=== PATIENT | male | born 1995 | race African-American/Black ===

== ENCOUNTER 2016-10-23 21:56 | Emergency (ER) | payer OTHER ==
[~2016-10-23] VITALS: Ht 193 cm; Wt 78.0 kg
--- OUTSIDE RECORDS SUMMARY | 2016-10-23 22:04 | XMS REPORT | Continuity of Care Document ---
Author Author Interface Organization Interface Address Unknown Phone Unavailable Problems Problem Status Onset Date Classification Date Reported Comments Source Final: Noninfective gastroenteritis and colitis, unspecified 10/28/2015 [facility] Final: Elevated white blood cell count, unspecified 07/2016 [facility] Problem 06/08/2016 [facility] Final: Diarrhea, unspecified 06/08/2016 [facility] Final: Epigastric pain 06/08/2016 [facility] Final: Personal history of other specified conditions 06/08/2016 [facility] Medications Medication Details Route Status Patient Instructions Ordering Provider Order Date Source Motrin 600 mg, PO, PRN Pain, Moderate, takes 800 mg when pain is really bad </br>takes 800 mg when pain is really bad Active [facility] Cephalexin 500 MG Oral Capsule [Keflex] </br>=500 mg, 1 cap, PO, Q12H, # 20 cap, 0 Refill(s) Active [facility] Allergies, Adverse Reactions, Alerts Substance Category Reaction Severity Reaction type Status Date Reported Comments Source Immunizations Immunization Date Given Site Status Last Updated Comments Source No data available for this section No data available for this section [facility] Results Order Name Results Value Reference Range Date Interpretation Comments Source Chemistry LIPASE 20 units/L 13 - 60 10/23/2015 [facility] Hematology MCHC 34.4 g/dL 32.0 - 36.0 10/23/2015 [facility] Hematology Plt 248 10^3/cmm 150 - [id number] 10/23/2015 [facility] Hematology MPV 7.1 FL 7.4 - 10.4 10/23/2015 [facility] Hematology RDW 13.6 % 11.5 - 14.5 10/23/2015 [facility] Hematology Gran % 83.0 % 45.0 - 74.0 10/23/2015 [facility] Hematology Baso % 0.2 % 0.0 - 2.0 10/23/2015 [facility] Hematology Gran 9.9 10^3/cmm 1.4 - 7.0103 10/23/2015 [facility] Hematology Ware % 6.6 % 1.0 - 9.0 10/23/2015 [facility] Hematology Eos % 0.2 % 1.0 - 8.0 10/23/2015 [facility] Hematology Lymph % 10.0 % 22.0 - 50.0 10/23/2015 [facility] Hematology NRBC Auto 0.0 / 100WBC 10/23/2015 [facility] Hematology Eos 0.00 10^3/cmm 0.00 - 0.66088 10/23/2015 [facility] Hematology Baso 0.00 10^3/ cmm 0.00 - 0.06155 2015 [facility] Hematology Ware 0.8 10^3/cmm 0.0 - 0.6103 10/23/2015 [facility] Hematology Lymph 1.2 10^3/ cmm 1.2 - 3.5103 10/23/2015 [facility] Hematology WBC 11.90 10^3/ cmm 4.30 - 10.89471 2015 [facility] Hematology RBC 5.29 10^6/cmm 4.40 - 6.75507 10/23/2015 [facility] Hematology Hemoglobin 15.3 g/ dL 14.0 - 18.0 10/23/2015 [facility] Hematology Hematocrit 44.3 % 40.0 - 52.0 10/23/2015 [facility] Hematology MCV 83.8 FL 80.0 - 100.0 10/23/2015 [facility] Hematology MCH 28.9 PG 27.0 - 34.0 10/23/2015 [facility] Chemistry GFR -Anguillan null >=60 mL/min/1.73m2 02/2016 [facility] Chemistry GFR Non -Anguillan null >=60 mL/min/1.73m2 10/23/2015 [facility] Chemistry Sodium 138 mmol/L 136 - 144 10/23/2015 [facility] Chemistry Chloride 99 mmol/L 95 - 105 10/23/2015 [facility] Chemistry Potassium 3.7 mmol/ L 3.6 - 5.1 10/23/2015 [facility] Chemistry GLUCOSE 99 mg/dL 70 - 99 10/23/2015 [facility] Chemistry Anion Gap 14 mmol/ L 10 - 20 10/23/2015 [facility] Chemistry BUN 15 mg/dL 8 - 20 10/23/2015 [facility] Chemistry CALCIUM 9.7 mg/dL 8.6 - 10.3 10/23/2015 [facility] Chemistry CO2 25 mmol/L 22 - 32 10/23/2015 [facility] Chemistry BUN/CREA RATIO 14.15 12.10 - 20.10 2015 [facility] Chemistry CALC. OSMO 287 mOsm /kg 275 - 300 10/23/2015 [facility] Chemistry Creatinine 1.06 mg/ dL 0.90 - 1.30 10/23/2015 Result Comment: This result should be interpreted with caution due to the Icteric nature of the submitted </br>sample. Result may deviate up to +/-10% or more, from reported result. [facility] Chemistry ALT [GPT] 15 U/L 7 - 35 10/23/2015 [facility] Chemistry TOTAL PROTEIN 7.8 g /dL 6.1 - 7.9 10/23/2015 [facility] Chemistry Bilirubin Total 2.2 mg/dL 0.3 - 1.2 2015 [facility] Chemistry Bilirubin Direct 0.3 mg/dL 0.1 - 0.5 2015 [facility] Chemistry GLOBULIN 2.8 g/dL 2.6 - 3.2 10/23/2015 [facility] Chemistry A/G RATIO 1.79 1.30 - 1.50 10/23/2015 [facility] Chemistry Bilirubin Indirect 1.9 mg/dL 0.3 - 0.7 2015 [facility] Chemistry ALK PHOS 105 U/L 32 - 91 10/23/2015 [facility] Chemistry AST [GOT] 26 U/L 15 - 41 10/23/2015 [facility] Chemistry ALBUMIN 5.0 g/dL 3.5 - 4.8 10/23/2015 [facility] Point Of Care Rapid HIV POC (Normal:Negative) Negative </br>(06/03/16 10:06 PM) [facility] Serology Ware Spot Negative </br>(06/03/16 9:59 PM) Negative 06/04/2016 [facility] Infectious Serology / Molecular Testing ASO Titer 65 IU/mL < QC=936 IU/mL 06/04/2016 Result Comment: Test Performed at: </br>[employer] [facility] </br>[address] </br>[place] [id number] MARIYA ENGLISH DO,MPH [facility] Chemistry CK TOTAL 141 U/L 38 - 234 06/04/2016 [facility] Chemistry LIPASE 18 units/L 13 - 60 06/04/2016 [facility] Chemistry ALT [GPT] 9 U/L 7 - 35 06/04/2016 [facility] Chemistry Bilirubin Direct 0.3 mg/dL 0.1 - 0.5 2015 [facility] Chemistry Bilirubin Total 1.6 mg/dL 0.3 - 1.2 2015 [facility] Chemistry TOTAL PROTEIN 7.5 g /dL 6.1 - 7.9 06/04/2016 [facility] Chemistry AST [GOT] 20 U/L 15 - 41 06/04/2016 [facility] Chemistry A/G RATIO 1.68 1.30 - 1.50 06/04/2016 [facility] Chemistry GLOBULIN 2.8 g/dL 2.6 - 3.2 06/04/2016 [facility] Chemistry Bilirubin Indirect 1.3 mg/dL 0.3 - 0.7 2015 [facility] Chemistry ALBUMIN 4.7 g/dL 3.5 - 4.8 06/04/2016 [facility] Chemistry ALK PHOS 98 U/L 32 - 91 06/04/2016 [facility] Chemistry Creatinine 1.09 mg/ dL 0.90 - 1.30 06/04/2016 [facility] Chemistry BUN/CREA RATIO 11.01 12.10 - 20.10 2015 [facility] Chemistry Anion Gap 12 mmol/ L 10 - 20 06/04/2016 [facility] Chemistry GFR -Anguillan null >=60 mL/min/1.73m2 [facility] Chemistry CALC. OSMO 286 mOsm /kg 275 - 300 06/04/2016 [facility] Chemistry GFR Non -Anguillan null >=60 mL/min/1.73m2 06/04/2016 [facility] Chemistry Sodium 138 mmol/L 136 - 144 06/04/2016 [facility] Chemistry Potassium 4.2 mmol/ L 3.6 - 5.1 06/04/2016 [facility] Chemistry BUN 12 mg/dL 8 - 20 06/04/2016 [facility] Chemistry CO2 26 mmol/L 22 - 32 06/04/2016 [facility] Chemistry CALCIUM 9.0 mg/dL 8.6 - 10.3 06/04/2016 [facility] Chemistry GLUCOSE 106 mg/dL 70 - 99 06/04/2016 [facility] Chemistry Chloride 100 mmol/ L 95 - 105 06/04/2016 [facility] Hematology Eos 0.10 10^3/cmm 0.00 - 0.89299 06/04/2016 [facility] Hematology NRBC Auto 0.1 / 100WBC 06/04/2016 [facility] Hematology Baso 0.10 10^3/ cmm 0.00 - 0.62455 2015 [facility] Hematology Ware 0.6 10^3/cmm 0.0 - 0.6103 06/04/2016 [facility] Hematology Baso % 1.1 % 0.0 - 2.0 06/04/2016 [facility] Hematology Eos % 1.7 % 1.0 - 8.0 06/04/2016 [facility] Hematology Lymph 1.3 10^3/ cmm 1.2 - 3.5103 06/04/2016 [facility] Hematology Gran 3.0 10^3/cmm 1.4 - 7.0103 06/04/2016 [facility] Hematology Ware % 12.8 % 1.0 - 9.0 06/04/2016 [facility] Hematology MPV 6.8 FL 7.4 - 10.4 06/04/2016 [facility] Hematology RDW 13.6 % 11.5 - 14.5 06/04/2016 [facility] Hematology Lymph % 25.2 % 22.0 - 50.0 06/04/2016 [facility] Hematology Gran % 59.2 % 45.0 - 74.0 06/04/2016 [facility] Hematology Hematocrit 41.6 % 40.0 - 52.0 06/04/2016 [facility] Hematology MCH 28.7 PG 27.0 - 34.0 06/04/2016 [facility] Hematology MCV 82.9 FL 80.0 - 100.0 06/04/2016 [facility] Hematology Plt 290 10^3/cmm 150 - [id number] 06/04/2016 [facility] Hematology MCHC 34.6 g/dL 32.0 - 36.0 06/04/2016 [facility] Hematology Hemoglobin 14.4 g/ dL 14.0 - 18.0 06/04/2016 [facility] Hematology RBC 5.02 10^6/cmm 4.40 - 6.15711 06/04/2016 [facility] Hematology WBC 5.00 10^3/cmm 4.30 - 10.32895 06/04/2016 [facility] Fecal / Stool Testing 027 Strain Presumptive Negative </br>(06/03/16 9:56 PM) Presumptive Negative 06/04/2016 [facility] Fecal / Stool Testing Toxigenic C. difficile Negative </br>(06/03/16 9:56 PM) Negative 06/04/2016 [facility] Infectious Serology / Molecular Testing Rapid Rotavirus Negative </br>(06/03/16 9:56 PM) Negative 06/04/2016 [facility] Point Of Care Urine Protein POC Negative mg/dL Negative mg/dL 06/04/2016 [facility] Point Of Care Urine Glucose POC Negative mg/dL Negative mg/dL 06/04/2016 [facility] Point Of Care Urine Ketones POC Trace mg/dL Negative mg/dL 06/04/2016 [facility] Point Of Care Urine Bilirubin POC Negative </br>(06/03/16 9:53 PM) Negative 06/04/2016 [facility] Point Of Care Urine pH POC 6.0 4.5 - 8.0 06/04/2016 [facility] Point Of Care Oper ID [id number] 06/04/2016 [facility] Point Of Care Urine Color POC Yellow </br>(06/03/16 9:53 PM) Yellow 06/04/2016 [facility] Point Of Care Urine Specific [place] POC 1.020 1.003 - 1.030 06/04/2016 [facility] Point Of Care Urine Clarity POC Clear </br>(06/03/16 9:53 PM) Clear 06/04/2016 [facility] Point Of Care Urine Nitrite POC Negative </br>(06/03/16 9:53 PM) Negative 06/04/2016 [facility] Point Of Care Urine Leukocyte Esterase POC Negative </br>(06/03/16 9:53 PM) Negative 06/04/2016 [facility] Point Of Care Urine Blood POC Negative </br>(06/03/16 9:53 PM) Negative 06/04/2016 [facility] Point Of Care Urine Urobilinogen POC 1.0 EU/dL 0.2 EU/dL 06/04/2016 [facility] Stool culture bacterial No Salmonella or Shigella isolated. No Campylobacter isolated. 06/04/2016 [facility] Shiga Toxin E. coli Shiga toxins 1 and 2 not detected. 06/04/2016 [facility] ED Discharge Instructions < table cellspacing="1" cellpadding="0" width="95%"><colgroup><col width="35%"></ col><col width="35%"></col><col width="30%"></col></colgroup><tbody><tr><td align="left"><content styleCode="Bold">Title:</content>ED Discharge Instructions </td><td align="left"><content styleCode="Bold">Author:</content> Martina Pierre RN</td><td align="left"><content styleCode="Bold">Date:</ content>06/04/16</td></tr></tbody></table><table cellspacing="1" cellpadding ="0" width="95%"><tbody><tr><td>[facility] [address] [place] [address] Emergency Department [phone] Emergency Department Discharge Instructions Name : JORDON CHARRAKAN DELACRUZ Visit Date: 06/03/2016 9:23 PM Reason For Visit: Diarrhea; Abdominal pain; FEVER, ABD PAIN Comment: Emergency Department Care Providers: Thank you for the opportunity to provide your emergency medical care. It is important that you understand that emergency medical services are not a substitute for complete medical care. For your protection, make arrangements to see the doctor indicated below. All smokers are encouraged to stop smoking. If you would like help, talk to your doctor or call The [place] Tobacco Quitline at 8-625-OUQB-NOW (8-094-314- 3904). If you have thoughts about committing suicide or otherwise hurting yourself, please call 911 or call Crisis Line at . If your primary care provider is a [facility] physician or you would like to establish care at [facility] please call [phone] to schedule an appointment. If you are a new patient you may have to wait up to 60 days for a scheduled appointment. If you need to establish care sooner, you may want to look for other options. PAYMENT GUIDELINES FOR [facility] PATIENTS: [facility] now requires all self-pay and partial [facility] discount patients to make a down payment before receiving non-emergency care. In most cases, your down payment will be 25 percent of your charges. If you currently receive a 100% [facility] discount , these new guidelines do not apply to you. We accept milligan, check, Visa and MasterCard. If you are a self-pay patient and would like to discuss discounted services or Medicaid, please contact [facility] at [phone]. Remember: at the time of your appointment, you must present a photo ID as well as your insurance card or the required down payment, or your appointment will be rescheduled for another day. If you have commercial insurance and [facility] is not on your list of providers, please call your insurance company and make your follow-up appointment with your PCP or a provider who takes your insurance. CHAR RUVALCABA has been given the following list of patient education materials, prescriptions and follow-up instructions: Follow-up Instructions: With: Address: When: Return to Emergency Department Within As needed Comments: Please be advised that in the emergency department primary complaints are addressed and only in light of known signs and symptoms. You should return immediately to the emergency department if new signs and symptoms develop or your condition worsens in any way. With: Address: When: Refer to Clinic Resource Sheet Comments: Use the clinic resource list to establish care with a primary care physician. You will need a follow-up examination from your emergency department visit within 7 days and you will need a regular physician for help in managing your ongoing medical problems. Patient Education Materials : Health Clinics in the [facility] Website: http://www.healthy[place].org/rx_resource_center_resources.html#ne [facility] Health Care Access in [place]: http://www.healthcareaccess.org [address] [place] [address] Provides comprehensive health care services and medication assistance to [facility] residents who have a limited income and no health insurance. [facility]: http://www.[facility] hospitalSuzhou [employer]/medministryphp [address], [address] [place] [address] Provides medical care for children and adults including preventive, chronic and acute health care. [facility]: http://www.[place].[facility]/ healthpa.htm [address] [address] Provides medication assistance for [facility]placed [facility] patients who are [facility] residents, have incomes of 200 percent of the poverty level and below and have no insurance. [facility] [address] [place] [address] . Provides primary health care services to the uninsured, registered patients of [facility] with incomes of 150 percent of the poverty level and below. Prescription drug assistance is available to clinic patients. [facility]: http://www.[facility] sanitariumu/berger.htm [address] [place] [address] Proof of income & meet Federal poverty level; only uninsured individuals. No walk-ins unless homeless. [address] [id number] Provides primary health care. Individuals and families with incomes below 200 percent of the poverty level are eligible for the sliding fee scale. [facility] ([place] and [place] locations): http://www.IActionable.org/ [place] locations: [facility] [address] [place] [id number] [facility] [address], [address] [place] [address] [facility] [address], [address] [place] [address] Charge based on income and family size. Provides: adult medicine, pediatrics, obstetrics/gynecology, mental health, healthcare for homeless, laboratory, x-ray , dental services. [facility] [address], [address] [place] [address] Provides primary healthcare and health counseling services to children under age 20. [facility] [address] [place] [address] Provides immunizations, blood pressure, and examinations for sexually transmitted diseases. [place] Website: http://www.[facility].nv.gov/LPHA/LPHAs.html [facility] [address] [place] [address] Provides primary health care to [facility]'s community. Administers well-baby services, AIDS / HIV testing, family planning counseling, diabetes screening/education / treatment, WIC program, immunizations , nutrition education, migrant health services, medical clinic, dental clinic. [address] [phone] [facility]: http://www.[facility].org/ [address] [id number] Must be [facility] resident with no health insurance. Provides immunizations , well-baby clinics, and sexually transmitted disease clinic. Adults with chronic diseases are seen on Tuesdays from 6-9pm by appointment only. [facility]: http://www.kcfree.org/ [place]: [phone] [address] [place] [address] [place]: [phone] [address] Appointments scheduled on a next-day scheduling basis. Bring proof of income and current residency information. Provides general medicine, testing/screening , community health, mental health services, HIV primary care and support, dental services. [facility] [place]: http://www.[facility].org/ [address] [place] [address] Interpreters: Kiswahili, [place] Ca[place] Islander, Bosnian, Portuguese, Mongolian, Kurdish, Congolese, Burmese, and Moroccan Provides the following services based on income and family size: pediatric, womens health/obstetrics, adult/geriatric medicine, dentistry, behavioral health/psychiatric services, gambling addiction counseling , substance abuse treatment and counseling. [facility]: http://www.[facility].org/ [place] locations: [facility] [address] [place] [address] [facility] [address] [place] [address] [facility] [address] [address] Charge based on income and family size. Provides: adult medicine, pediatrics, obstetrics/gynecology, mental health, healthcare for homeless, laboratory, x-ray , dental services. [facility]: [facility] Department: http://www.[facility].nv.gov/profiles/CountyInfo/ CpiClay[place] [address] Provides primary, preventative, and womens health care services. [facility]: http://www.[facility].com [facility] [address] [place] [address] Primary care, funded by [facility] and the [facility] care tax bob. Provides primary health care to citizens who are on Medicaid or MC+ or have no health insurance. [facility]: [facility] [address], [place] [phone] Provides health education and health screenings. Diarrhea Diarrhea is frequent loose and watery bowel movements. It can cause you to feel weak and dehydrated. Dehydration can cause you to become tired and thirsty, have a dry mouth, and have decreased urination that often is dark yellow. Diarrhea is a sign of another problem, most often an infection that will not last long. In most cases, diarrhea typically lasts 23 days. However, it can last longer if it is a sign of something more serious. It is important to treat your diarrhea as directed by your caregiver to lessen or prevent future episodes of diarrhea. CAUSES Some common causes include: Gastrointestinal infections caused by viruses, bacteria, or parasites. Food poisoning or food allergies. Certain medicines, such as antibiotics, chemotherapy, and laxatives. Artificial sweeteners and fructose. Digestive disorders. HOME CARE INSTRUCTIONS Ensure adequate fluid intake (hydration): Have 1 cup (8 oz) of fluid for each diarrhea episode. Avoid fluids that contain simple sugars or sports drinks , fruit juices, whole milk products, and sodas. Your urine should be clear or pale yellow if you are drinking enough fluids. Hydrate with an oral rehydration solution that you can purchase at pharmacies, retail stores, and online. You can prepare an oral rehydration solution at home by mixing the following ingredients together: tsp table salt. tsp baking soda. tsp salt substitute containing potassium chloride. 1 tablespoons sugar. 1 L (34 oz) of water. Certain foods and beverages may increase the speed at which food moves through the gastrointestinal (GI) tract. These foods and beverages should be avoided and include: Caffeinated and alcoholic beverages. High-fiber foods, such as raw fruits and vegetables, nuts, seeds, and whole grain breads and cereals. Foods and beverages sweetened with sugar alcohols, such as xylitol, sorbitol, and mannitol. Some foods may be well tolerated and may help thicken stool including: Starchy foods, such as rice, toast, pasta, low-sugar cereal, oatmeal, grits, baked potatoes, crackers, and bagels. Bananas. Applesauce. Add probiotic-rich foods to help increase healthy bacteria in the GI tract, such as yogurt and fermented milk products. Wash your hands well after each diarrhea episode. Only take yfet-gha-udvxuys or prescription medicines as directed by your caregiver. Take a warm bath to relieve any burning or pain from frequent diarrhea episodes. SEEK IMMEDIATE MEDICAL CARE IF: You are unable to keep fluids down. You have persistent vomiting. You have blood in your stool, or your stools are black and tarry. You do not urinate in 68 hours, or there is only a small amount of very dark urine. You have abdominal pain that increases or localizes. You have weakness, dizziness, confusion, or light-headedness. You have a severe headache. Your diarrhea gets worse or does not get better. You have a fever or persistent symptoms for more than 23 days. You have a fever and your symptoms suddenly get worse. MAKE SURE YOU: Understand these instructions. Will watch your condition. Will get help right away if you are not doing well or get worse. This information is not intended to replace advice given to you by your health care provider. Make sure you discuss any questions you have with your health care provider. Document Released: 09/25/2003 Document Revised: 10/26/2015 Document Reviewed: [employer] Patient Information 2016 [employer]. Prescription leaflets: Prescriptions : Prescriptions: loperamide (loperamide 2 mg oral capsule) 2 mg (1 cap) By Mouth Every 4 Hours, 10 cap, 0 Refills, printed prescription Comment: Your Upcoming Appointments/Genesis proxim[place] citas Please bring all home medications to every visit with us at [facility]. Your safety and education around medications is our goal. (Prescription , non prescription and herbal supplements) Date Time Location Appointment Type Provider No Appointments found Future Orders Placed Today/Ordenes de Doctor Major procedures/tests performed during your ED visit: Laboratory Orders Name Status Details ASO Ordered Stat, ST, 06/03/16 21:54:00, Blood, Print Label BMP Completed Stat, 06/03/16 21:54:00, Blood, 74.2 kg C Stool Ordered Routine, 06/03/16 21:54:00, Stool, Nurse Collect, 06/03/16 21:56:00, 06/03/16 21 :54:00 C diff toxin InProcess STAT, 06/03/16 21:54:00, Stool, Print Label, Stool CBC Completed Stat, 06/03/16 21:54:00, Blood, 74.2 kg CK Completed Stat, ST, 06/03/16 21:54:00, Blood, Print Label Giar Cryp Ordered STAT, 06/03/16 21:54:00, Stool, Nurse Collect, 06/03/16 21:56:00, 06/03/16 21:54 :00 Lipase Completed Stat, 06/03/16 21:54:00, Blood, 74.2 kg Liver Completed Stat, 06/03/16 21:54:00, Blood, 74.2 kg Ware Completed Stat, ST, 06/03/16 21:54:00, Blood, Print Label POC UA Completed Urine, Collected Y/N, 06/03/16 21:53:00, Routine, RT, 06/03/16 21:53:00 Rapid Rotavirus Completed STAT, 06/03/16 21:54:00, Feces, Print Label Shiga Toxin Ordered Stat, 06/03/16 21:54:00, Stool, Nurse Collect, 06/03/16 21:56:00, 06/03/16 21:54 :00 CAR FRAMER Completed 06/03/16 21:59:00, Stat, ST, Other, 1 mL No Draw/*[id number]*/, Collected Y/N, Done, 06/03/16 22:30:00, [facility] Log-in, [place] Radiology Orders No radiology orders were placed. [ ] (If checked) Do not drive or operate heavy machinery for 12 hours. The exam and treatment that you received today has been provided on an emergency basis only. If your problem worsens or new symptoms appear, contact your doctor or return to this facility for further care. YOU MUST MAKE A FOLLOW-UP APPOINTMENT IN THE CLINIC LISTED ABOVE TO RECEIVE YOUR TEST RESULTS! Take Charge of Your Health with [facility] Sign up today for [facility] for access to your health records 11/05. [facility] allows you to: Request an appointment Check your lab results Communicate with your providers and care team See provider notes from your visit View immunization records View current medication Sign up Today! Ask your healthcare provider or a [facility] associate for help, or email [email or web address] JORDON Saldaña JAMARI RAYNEAL, have received the attached patient education materials/instructions and have verbalized understanding/Yo recibi educacion, materiales instrucciones de paciente y se me a explicado verbalmente para mi propia comprension: Patient/Guardian Signature Date Firma de paciente/guardian Feclavern Witness Signature Date Firma de Testkody Quigley </td></tr></tbody></table> [facility] Clinical Document <table cellspacing="1" cellpadding="0" width="95%"><colgroup><col width="35%"></col>< col width="35%"></col><col width="30%"></col></colgroup><tbody><tr><td align= "left"><content styleCode="Bold">Title:</content>Clinical Document</td><td align ="left"><content styleCode="Bold">Author:</content>Tian Galvan</td><td align="left"><content styleCode="Bold">Date:</content>06/03/16</td></tr></tbody>< /table><table cellspacing="1" cellpadding="0" width="95%"><tbody><tr><td>Chief Complaint: Diarrhea History of Present Illness: Patient is a 21-year-old male who states that over the last 4 days he has had discomfort in his abdomen near his umbilicus and has been having diarrhea. Patient describes at least 10 episodes of watery, brown, nonbloody diarrhea per day since the illness started. He notes that he has been able to drink and is not having any nausea or vomiting. However when he does eat , it seems to "go right through me". Patient notes that about 2 weeks ago he had a severe sore throat and a fever. He was seen by his primary doctor and was treated symptomatically without diagnostic testing. Patient states that his sore throat stopped approximately one week ago and is gone now. He notes that since he's had the diarrhea he feels that he had a recurrent fever again. He notes that he is having sweats at night and feeling hot, but he has not measured his temperature. He believes that his MAXIMUM TEMPERATURE was 102 with the pharyngitis a few weeks ago. Patient was seen in an urgent care yesterday and was told that he has protein in his urine. He had a rapid strep test that was negative, but the family does not know the results of the cultures. He also had a fingerstick monotest that was negative. He was started on Keflex yesterday also. Past Medical History: Patient denies ongoing medical illness except what is described above Primary Care Physician: Dr. Rollins. Patient saw the nurse practitioner in that office a week ago Medications: Keflex, no other medications Allergies: No known drug allergies Past Surgical History: Knee surgery Family History: Coronary artery disease, diabetes, asthma, hypertension Social History: Patient is a nonsmoker. He denies drug and alcohol abuse. Patient is a college student at [employer]. 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 He stopped working there about 2 weeks ago. He does not know of any specific sick contacts recently. He denies any unusual bites, stings, or rashes while working at [employer]. Review of Systems: All other systems reviewed and are negative Physical Exam: Vitals: Temperature 99.4 heart rate 78 respiratory rate 18 blood pressure 129/ 82 and oxygen saturation 100% on room air Gen.: This is a well-developed athletic appearing -[place]guill[place] male who is not in acute distress HEENT: Ears are clear bilaterally, conjunctiva pink, pupils are equal round and reactive to light, nares patent bilaterally, there is no sinus tenderness to percussion, lips and mucous membranes are moist, oropharynx is clear. Neck: Supple, patient has no anterior chain or posterior chain cervical lymphadenopathy Chest: Clear and equal bilaterally Heart: Regular Abdomen: Patient has mild epigastric pain without guarding or rebound. Bowel sounds are present. No hepatosplenomegaly is noted Skin: pink and well profused, no rashes or lesions Psych: Patient is alert and oriented Neuro: Grossly normal strength and sensation ED Course: 2121: Patient was triaged 2129: Patient was seen by this physician. 2144: Basic laboratory studies were ordered by this physician. Stool studies were ordered. Patient's urinalysis shows clear urine with a specific gravity of 1.020 and no abnormality. Patient's laboratory studies are essentially within normal limits. Stool studies have been collected and are pending. Assessment: Abdominal pain and diarrhea with history of recent pharyngitis Plan: Medications Prescribed: Loperamide Instructions: Plenty of fluids, patient will be contacted if any of his culture results are positive Consultations: None Follow up: In addition patient is asked to followup with their primary doctor, within a week for followup examination and to address patient's ongoing medical conditions. Because patient does not have a regular medical doctor, the [facility] Resource Sheet will be provided to establish care primary care. Patient is advised that in the Emergency Department primary complaints are addressed and only in light of known signs and symptoms. Patient should return immediately to the emergency department if new signs and symptoms develop or patient's condition worsens in any way. At time of discharge patient was in stable condition and had verbalized understanding of the discharge instructions. Signed: Tian Galvan M.D. * The above document was generated with a voice recognition dictation system.</ td></tr></tbody></table> [facility] Vital Signs Vital Sign Value Date Comments Source Total Pain Calculation 0 [facility] Heart Rate 72 bpm 12/07/2013 [facility] Respiratory Rate 16 BR/min [facility] Temperature Celsius 36.3 Rachel 12/07/2013 [facility] Systolic Blood Pressure Cuff Monitored 132 mm[Hg] 12/07/2013 [facility] Diastolic Blood Pressure Cuff Monitored 82 mm[Hg] 12/07/2013 [facility] Temperature Route Oral </br>(12/06/2013 20:32:00) <sup> </sup> 12/07/2013 [facility] NBP Activity Calm </br>(12/06/2013 20:32:00) <sup> </sup> 12/07/2013 [facility] NBP Cuff Sizes Adult </br>(12/06/2013 20:32:00) <sup> </sup> 12/07/2013 [facility] NBP Extremity Arm, left </br>(12/06/2013 20:32:00) <sup> </sup> 12/07/2013 [facility] NBP Position Sitting </br>(12/06/2013 20:32:00) <sup> </sup> 12/07/2013 [facility] Total Pain Calculation 2 [facility] SpO2 100 % 12/07/2013 [facility] Respiratory Rate 16 BR/min [facility] Heart Rate 60 bpm 12/07/2013 [facility] Respiratory Rate 16 BR/min [facility] Fraction of Inspired Oxygen 21 % 12/07/2013 [facility] SpO2 95 % 12/07/2013 [facility] Heart Rate 76 bpm 12/07/2013 [facility] Total Pain Calculation 10 [facility] Systolic BP 126 mmHg 2015 [facility] Diastolic BP 74 mmHg 2015 [facility] Oxygen Saturation 98 % 2015 [facility] Oxygen Therapy Room air </br>(10/23/15 3:17 AM) 10/23/2015 [facility] Resp. Rate 16 BRMIN 2015 [facility] Temperature Route Oral </br>(10/23/15 3:17 AM) 10/23/2015 [facility] Temperature Oral 97.7 [degF] 10/23/2015 [facility] Heart Rate 75 bpm 10/23/2015 [facility] Temperature Oral 99.2 [degF] 06/04/2016 [facility] Resp. Rate 19 BRMIN 2015 [facility] Heart Rate 71 bpm 06/04/2016 [facility] Heart Rate 78 bpm 06/04/2016 [facility] Systolic BP 129 mmHg 2015 [facility] Diastolic BP 82 mmHg 2015 [facility] Temperature Oral 99.4 [degF] 06/04/2016 [facility] Temperature Route Oral </br>(06/03/16 9:22 PM) 06/04/2016 [facility] Oxygen Saturation 100 % 06/04 [facility] Oxygen Therapy Room air </br>(06/03/16 9:22 PM) 06/04/2016 [facility] Resp. Rate 18 BRMIN 2015 [facility] Encounters Location Location Details Encounter Type Encounter Number Reason For Visit Attending Provider ADM Date DC Date Status Source [facility] RCR [id number] tibia fracture Mega Apple 10/18/2013 02/15/2014 [facility] CLI [id number] f/u tibial tubercle fx Nely Aundrea 06/21/2013 06/21/2013 [facility] ER [id number] Injury - Ankle(s) Brooklynn Swanson 12/06/2013 12/06/2013 [facility] CLI [id number] 4-5 wk fx fu - knee Nely Aundrea 09/06/2013 09/06/2013 [facility] CLI [id number] 9-10 wk fx fu - knee Nely Aundrea [facility] CLI [id number] 4-5 wk fx fu - tib Nely Aundrea 08/02/2013 08/02/2013 [facility] CLI [id number] f/u TIBIAL TUBERCLE FX Nely Aundrea 12/14/2013 12/14/2013 [facility] CLI [id number] FU FX Nely Aundrea 09/27/20132012 [facility] CLI [id number] f/u on brace; weight bearing Nely Aundrea 07/05/2013 07/05/2013 [facility] ER [id number] Fever [employer] [place] 10/30/2012 10/30/2012 [facility] Emergency [id number] Tian Galvan 10/23/2015 10/24/2015 [facility] Emergency [id number] Tian Galvan 06/04/2016 06/04/2016 [facility] Procedures Procedure Code Date Perfomer Comments Source No data available for this section [facility]
--- NOTE | 2016-10-23 22:14 | ED Lower Extremity ---
General Chief Complaint: Laceration Stated Complaint: RT FOOT LAC Nursing Triage Note: LACERATION TO RIGHT FOOT Nursing Sepsis Screen: No Definite Risk Source: patient Exam Limitations: no limitations History of Present Illness Time seen by provider: 22:10 Initial Comments To ER with laceration of the dorsal aspect of the right foot. States he was at work at [employer] when a knife slipped and went through the top of his shoe puncturing the dorsal aspect of the right foot near the second toe base. Onset: just prior to arrival Severity: mild Pain/Injury Location: right 2nd toe Method of Injury: incised Allergies and Home Medications Allergies Coded Allergies: No Known Drug Allergies (Unverified , 10/23/16) Home Medications No Active Prescriptions or Reported Meds Constitutional: see HPI EENTM: see HPI Respiratory: no symptoms reported Cardiovascular: no symptoms reported Genitourinary: no symptoms reported Musculoskeletal: no symptoms reported Skin: see HPI Psychiatric/Neurological: No Symptoms Reported Past Wspeyyk-Uvprik-Xoibln Hx Patient Social History Alcohol Use: Denies Use Recreational Drug Use: No Smoking Status: Never a Smoker Recent Foreign Travel: No Contact w/Someone Who Travel: No Recent Infectious Disease Expo: No Recent Hopitalizations: No Physical Abuse Screen: No Sexual Abuse: No Immunizations Up To Date Tetanus Booster (TDap): Less than 5yrs PED Vaccines UTD: Yes Seasonal Allergies Seasonal Allergies: No Surgeries HX Surgeries: Yes (L KNEE) Surgeries: Orthopedic Respiratory Hx Respiratory Disorders: No Cardiovascular Hx Cardiac Disorders: No Neurological Hx Neurological Disorders: No Reproductive System Hx Reproductive Disorders: No Genitourinary Hx Genitourinary Disorders: No Gastrointestinal Hx Gastrointestinal Disorders: No Musculoskeletal Hx Musculoskeletal Disorders: No Endocrine Hx Endocrine Disorders: No HEENT HX ENT Disorders: No Cancer Hx Cancer: No Psychosocial Hx Psychiatric Problems: No Integumentary HX Skin/Integumentary Disorder: No Blood Transfusions Hx Blood Disorders: No Adverse Reaction to a Blood Tr: No Physical Exam Vital Signs Vital Sign - Last 12Hours 10/23/16 22:04 Temp 98.3 Pulse 57 Resp 16 B/P 131/87 Pulse Ox 100 O2 Delivery Room Air Capillary Refill : Less Than 3 Seconds General Appearance: WD/WN no apparent distress HEENT: PERRL/EOMI normal ENT inspection Neck: non-tender full range of motion Respiratory: no respiratory distress no accessory muscle use Hips: bilateral hip non-tender, bilateral hip normal inspection, bilateral hip normal range of motion Legs: bilateral leg non-tender, bilateral leg normal inspection, bilateral leg normal range of motion Knees: bilateral knee non-tender, bilateral knee normal inspection, bilateral knee normal range of motion Ankles: bilateral ankle non-tender, bilateral ankle normal inspection, bilateral ankle normal range of motion Feet: right foot other (small 0.5 cm laceration to the dorsal aspect of the right foot near the second MCP joint. He is still able to extend and flex his second toe.) Neurologic/Psychiatric: alert normal mood/affect oriented x 3 Skin: normal color warm/dry Laceration Repair : Wound Location: Lower Extremities Wound Length (cm): 0.5 Wound's Depth, Shape: sub Q Wound Explored: clean Irrigated w/ Saline (ccs): 20 Anesthesia: Lidocaine w/ Epi Suture: Ethlion Suture Size: 5-0 Number of Sutures: 1 Layer Closure?: 1 Number Deep Layer Sutures: 0 Progress Area anesthetized with 0.5 mL of 1 percent lidocaine with epinephrine. Was not injected in the toe. Area was then scrubbed with chlorhexidine/saline solution and irrigated with 20 mg of the same. Wound was then closed with one simple interrupted sutures size 5-0 Ethilon. Progress/Results/Core Measures Results/Orders Vital Signs/I&O Vital Sign - Last 12Hours 10/23/16 22:04 Temp 98.3 Pulse 57 Resp 16 B/P 131/87 Pulse Ox 100 O2 Delivery Room Air Blood Pressure Mean: 102 Departure Impression Impression: Primary Impression: Foot laceration Qualified Code: S91.311A - Laceration without foreign body, right foot, initial encounter Disposition: 01 HOME, SELF-CARE Condition: Improved Departure-Patient Inst. Decision time for Depature: 22:12 Referrals: NO,LOCAL PHYSICIAN (PCP/Family) Primary Care Physician Patient Instructions: Laceration Repair With Stitches (DC) Add. Discharge Instructions: 1. Return to ER to have the stitches removed in 7-10 days at your convenience 2. Return to ER before then for any sign of infection such as redness swelling or fevers 3. Starting tomorrow you may get this wet allowing water to run over it such as in the shower. However, do not soak it in water such as a hot tub, swimming pool, bathtub until stitches have been removed 4. Starting tomorrow you may cover this with a simple Band-Aid All discharge instructions reviewed with patient and/or family. Voiced understanding. Scripts No Active Prescriptions or Reported Meds CHARLENE CONTI APRN Oct 23, 2016 22:13
[2016-10-23] MEDS ORDERED: LIDOCAINE 2% 20 ML (XYLOCAINE) VIAL INJ ONE (22:15)
[2016-10-23 22:22] VITALS: BP 131/87
== END 2016-10-23 22:23 | disposition home or self-care (01) ==
LOC: ER 21:58
DX: S91.311A Laceration without foreign body, right foot, initial encounter (principal); W26.0XXA Contact with knife, initial encounter; Y92.511 Restaurant or cafe as the place of occurrence of the external cause; Y93.G1 Activity, food preparation and clean up; Y99.0 Civilian activity done for income or pay
CPT/HCPCS: 12001

== ENCOUNTER 2016-10-31 17:57 | Emergency (ER) | payer OTHER ==
[~2016-10-31] VITALS: Ht 190.5 cm; Wt 72.6 kg
--- OUTSIDE RECORDS SUMMARY | 2016-10-31 18:04 | XMS REPORT | Continuity of Care Document ---
Author Author Interface Organization Interface Address Unknown Phone Unavailable Problems Problem Status Onset Date Classification Date Reported Comments Source Final: Noninfective gastroenteritis and colitis, unspecified 10/28/2015 [facility] Final: Elevated white blood cell count, unspecified 07/2016 [facility] Problem 06/08/2016 [facility] Final: Diarrhea, unspecified 06/08/2016 [facility] Final: Epigastric pain 06/08/2016 [facility] Final: Personal history of other specified conditions 06/08/2016 [facility] Medications Medication Details Route Status Patient Instructions Ordering Provider Order Date Source Motrin 600 mg, PO, PRN Pain, Moderate, takes 800 mg when pain is really bad </br>takes 800 mg when pain is really bad Active [facility] Cephalexin 500 MG Oral Capsule [Keflex] </br>=500 mg, 1 cap, PO, Q12H, # 20 cap, 0 Refill(s) Active [facility] Allergies, Adverse Reactions, Alerts Substance Category Reaction Severity Reaction type Status Date Reported Comments Source Immunizations Immunization Date Given Site Status Last Updated Comments Source No data available for this section No data available for this section [facility] Results Order Name Results Value Reference Range Date Interpretation Comments Source Chemistry LIPASE 20 units/L 13 - 60 10/23/2015 [facility] Hematology MCHC 34.4 g/dL 32.0 - 36.0 10/23/2015 [facility] Hematology Plt 248 10^3/cmm 150 - [id number] 10/23/2015 [facility] Hematology MPV 7.1 FL 7.4 - 10.4 10/23/2015 [facility] Hematology RDW 13.6 % 11.5 - 14.5 10/23/2015 [facility] Hematology WBC 11.90 10^3/ cmm 4.30 - 10.63837 2015 [facility] Hematology RBC 5.29 10^6/cmm 4.40 - 6.64565 10/23/2015 [facility] Hematology Hemoglobin 15.3 g/ dL 14.0 - 18.0 10/23/2015 [facility] Hematology Hematocrit 44.3 % 40.0 - 52.0 10/23/2015 [facility] Hematology MCV 83.8 FL 80.0 - 100.0 10/23/2015 [facility] Chemistry CK TOTAL 141 U/L 38 - 234 06/04/2016 [facility] Chemistry LIPASE 18 units/L 13 - 60 06/04/2016 [facility] Hematology MCH 28.9 PG 27.0 - 34.0 10/23/2015 [facility] Chemistry GFR -Slovak null >=60 mL/min/1.73m2 02/2016 [facility] Chemistry GFR Non -Slovak null >=60 mL/min/1.73m2 10/23/2015 [facility] Chemistry Sodium 138 mmol/L 136 - 144 10/23/2015 [facility] Chemistry ALT [GPT] 9 U/L 7 - 35 06/04/2016 [facility] Chemistry Bilirubin Direct 0.3 mg/dL 0.1 - 0.5 2015 [facility] Chemistry Bilirubin Total 1.6 mg/dL 0.3 - 1.2 2015 [facility] Chemistry TOTAL PROTEIN 7.5 g /dL 6.1 - 7.9 06/04/2016 [facility] Chemistry AST [GOT] 20 U/L 15 - 41 06/04/2016 [facility] Hematology NRBC Auto 0.1 / 100WBC 06/04/2016 [facility] Hematology Baso 0.10 10^3/ cmm 0.00 - 0.50843 2015 [facility] Hematology Iosco 0.6 10^3/cmm 0.0 - 0.6103 06/04/2016 [facility] Hematology Baso % 1.1 % 0.0 - 2.0 06/04/2016 [facility] Hematology Eos % 1.7 % 1.0 - 8.0 06/04/2016 [facility] Point Of Care Oper ID [id number] 06/04/2016 [facility] Point Of Care Urine Color POC Yellow </br>(06/03/16 9:53 PM) Yellow 06/04/2016 [facility] Point Of Care Urine Specific [place] POC 1.020 1.003 - 1.030 06/04/2016 [facility] Point Of Care Urine Clarity POC Clear </br>(06/03/16 9:53 PM) Clear 06/04/2016 [facility] Point Of Care Urine Nitrite POC Negative </br>(06/03/16 9:53 PM) Negative 06/04/2016 [facility] Chemistry Chloride 99 mmol/L 95 - 105 10/23/2015 [facility] Chemistry Potassium 3.7 mmol/ L 3.6 - 5.1 10/23/2015 [facility] Chemistry GLUCOSE 99 mg/dL 70 - 99 10/23/2015 [facility] Chemistry Anion Gap 14 mmol/ L 10 - 20 10/23/2015 [facility] Chemistry BUN 15 mg/dL 8 - 10/23/2015 [facility] Chemistry CALCIUM 9.7 mg/dL 8.6 - 10.3 10/23/2015 [facility] Hematology Lymph 1.3 10^3/ cmm 1.2 - 3.5103 06/04/2016 [facility] Hematology Gran 3.0 10^3/cmm 1.4 - 7.0103 06/04/2016 [facility] Hematology Iosco % 12.8 % 1.0 - 9.0 06/04/2016 [facility] Hematology MPV 6.8 FL 7.4 - 10.4 06/04/2016 [facility] Hematology RDW 13.6 % 11.5 - 14.5 06/04/2016 [facility] Point Of Care Urine Leukocyte Esterase POC Negative </br>(06/03/16 9:53 PM) Negative 06/04/2016 [facility] Point Of Care Urine Blood POC Negative </br>(06/03/16 9:53 PM) Negative 06/04/2016 [facility] Point Of Care Urine Urobilinogen POC 1.0 EU/dL 0.2 EU/dL 06/04/2016 [facility] Stool culture bacterial No Salmonella or Shigella isolated. No Campylobacter isolated. 06/04/2016 [facility] Chemistry CO2 25 mmol/L 22 - 32 10/23/2015 [facility] Chemistry BUN/CREA RATIO 14.15 12.10 - 20.10 2015 [facility] Chemistry CALC. OSMO 287 mOsm /kg 275 - 300 10/23/2015 [facility] Chemistry Creatinine 1.06 mg/ dL 0.90 - 1.30 10/23/2015 Result Comment: This result should be interpreted with caution due to the Icteric nature of the submitted </br>sample. Result may deviate up to +/-10% or more, from reported result. [facility] Chemistry ALT [GPT] 15 U/L 7 - 35 10/23/2015 [facility] Chemistry A/G RATIO 1.68 1.30 - 1.50 06/04/2016 [facility] Chemistry GLOBULIN 2.8 g/dL 2.6 - 3.2 06/04/2016 [facility] Chemistry Bilirubin Indirect 1.3 mg/dL 0.3 - 0.7 2015 [facility] Chemistry ALBUMIN 4.7 g/dL 3.5 - 4.8 06/04/2016 [facility] Chemistry ALK PHOS 98 U/L 32 - 91 06/04/2016 [facility] Hematology Lymph % 25.2 % 22.0 - 50.0 06/04/2016 [facility] Hematology Gran % 59.2 % 45.0 - 74.0 06/04/2016 [facility] Hematology Hematocrit 41.6 % 40.0 - 52.0 06/04/2016 [facility] Hematology MCH 28.7 PG 27.0 - 34.0 06/04/2016 [facility] Hematology MCV 82.9 FL 80.0 - 100.0 06/04/2016 [facility] Hematology Plt 290 10^3/cmm 150 - [id number] 06/04/2016 [facility] Hematology Gran % 83.0 % 45.0 - 74.0 10/23/2015 [facility] Chemistry TOTAL PROTEIN 7.8 g /dL 6.1 - 7.9 10/23/2015 [facility] Chemistry Bilirubin Total 2.2 mg/dL 0.3 - 1.2 2015 [facility] Chemistry Bilirubin Direct 0.3 mg/dL 0.1 - 0.5 2015 [facility] Chemistry GLOBULIN 2.8 g/dL 2.6 - 3.2 10/23/2015 [facility] Chemistry Creatinine 1.09 mg/ dL 0.90 - 1.30 06/04/2016 [facility] Chemistry BUN/CREA RATIO 11.01 12.10 - 20.10 2015 [facility] Chemistry Anion Gap 12 mmol/ L 10 - 20 06/04/2016 [facility] Chemistry GFR -Slovak null >=60 mL/min/1.73m2 [facility] Hematology MCHC 34.6 g/dL 32.0 - 36.0 06/04/2016 [facility] Hematology Hemoglobin 14.4 g/ dL 14.0 - 18.0 06/04/2016 [facility] Hematology RBC 5.02 10^6/cmm 4.40 - 6.88403 06/04/2016 [facility] Hematology WBC 5.00 10^3/cmm 4.30 - 10.34726 06/04/2016 [facility] Fecal / Stool Testing 027 Strain Presumptive Negative </br>(06/03/16 9:56 PM) Presumptive Negative 06/04/2016 [facility] Shiga Toxin E. coli Shiga toxins 1 and 2 not detected. 06/04/2016 [facility] Hematology Baso % 0.2 % 0.0 - 2.0 10/23/2015 [facility] Hematology Gran 9.9 10^3/cmm 1.4 - 7.0103 10/23/2015 [facility] Hematology Iosco % 6.6 % 1.0 - 9.0 10/23/2015 [facility] Hematology Eos % 0.2 % 1.0 - 8.0 10/23/2015 [facility] Hematology Lymph % 10.0 % 22.0 - 50.0 10/23/2015 [facility] Chemistry A/G RATIO 1.79 1.30 - 1.50 10/23/2015 [facility] Chemistry Bilirubin Indirect 1.9 mg/dL 0.3 - 0.7 2015 [facility] Chemistry ALK PHOS 105 U/L 32 - 91 10/23/2015 [facility] Chemistry AST [GOT] 26 U/L 15 - 41 10/23/2015 [facility] Chemistry ALBUMIN 5.0 g/dL 3.5 - 4.8 10/23/2015 [facility] Chemistry CALC. OSMO 286 mOsm /kg 275 - 300 06/04/2016 [facility] Chemistry GFR Non -Slovak null >=60 mL/min/1.73m2 06/04/2016 [facility] Chemistry Sodium 138 mmol/L 136 - 144 06/04/2016 [facility] Chemistry Potassium 4.2 mmol/ L 3.6 - 5.1 06/04/2016 [facility] Chemistry BUN 12 mg/dL 8 - 20 06/04/2016 [facility] Fecal / Stool Testing Toxigenic C. difficile Negative </br>(06/03/16 9:56 PM) Negative 06/04/2016 [facility] Infectious Serology / Molecular Testing Rapid Rotavirus Negative </br>(06/03/16 9:56 PM) Negative 06/04/2016 [facility] Point Of Care Urine Protein POC Negative mg/dL Negative mg/dL 06/04/2016 [facility] Hematology NRBC Auto 0.0 / 100WBC 10/23/2015 [facility] Hematology Eos 0.00 10^3/cmm 0.00 - 0.93606 10/23/2015 [facility] Hematology Baso 0.00 10^3/ cmm 0.00 - 0.34489 2015 [facility] Hematology Iosco 0.8 10^3/cmm 0.0 - 0.6103 10/23/2015 [facility] Hematology Lymph 1.2 10^3/ cmm 1.2 - 3.5103 10/23/2015 [facility] Point Of Care Rapid HIV POC (Normal:Negative) Negative </br>(06/03/16 10:06 PM) [facility] Serology Iosco Spot Negative </br>(06/03/16 9:59 PM) Negative 06/04/2016 [facility] Infectious Serology / Molecular Testing ASO Titer 65 IU/mL < GO=731 IU/mL 06/04/2016 Result Comment: Test Performed at: </br>[facility] </br>[id number] </br>GISSELLE HANDLEY [id number] MARIYA ENGLISH DO,MPH [facility] Chemistry CO2 26 mmol/L 22 - 32 06/04/2016 [facility] Chemistry CALCIUM 9.0 mg/dL 8.6 - 10.3 06/04/2016 [facility] Chemistry GLUCOSE 106 mg/dL 70 - 99 06/04/2016 [facility] Chemistry Chloride 100 mmol/ L 95 - 105 06/04/2016 [facility] Hematology Eos 0.10 10^3/cmm 0.00 - 0.60218 06/04/2016 [facility] Point Of Care Urine Glucose POC Negative mg/dL Negative mg/dL 06/04/2016 [facility] Point Of Care Urine Ketones POC Trace mg/dL Negative mg/dL 06/04/2016 [facility] Point Of Care Urine Bilirubin POC Negative </br>(06/03/16 9:53 PM) Negative 06/04/2016 [facility] Point Of Care Urine pH POC 6.0 4.5 - 8.0 06/04/2016 [facility] ED Discharge Instructions < table cellspacing="1" cellpadding="0" width="95%"><colgroup><col width="35%"></ col><col width="35%"></col><col width="30%"></col></colgroup><tbody><tr><td align="left"><content styleCode="Bold">Title:</content>ED Discharge Instructions </td><td align="left"><content styleCode="Bold">Author:</content> Martina Pierre RN</td><td align="left"><content styleCode="Bold">Date:</ content>06/04/16</td></tr></tbody></table><table cellspacing="1" cellpadding ="0" width="95%"><tbody><tr><td>[facility] [address] [place] [address] Emergency Department [phone] Emergency Department Discharge Instructions Name : CHAR RUVALCABA NUBIA Visit Date: 06/03/2016 9:23 PM Reason For [...] talk to your doctor or call [facility] [place] [employer] at [phone] ([phone]). If you have thoughts about committing suicide or otherwise hurting yourself, please call 911 or call Crisis Line at . If your primary care provider is a [facility] physician or you would like to establish care at [facility] please call [phone] to schedule an appointment. If you are a new patient you may have to wait up to 60 days for a scheduled appointment. If you need to establish care sooner, you may want to look for other options. PAYMENT GUIDELINES FOR [facility] PATIENTS: [facility] now requires all self-pay and partial [facility] discount patients to make a down payment before receiving non-emergency care. In most cases, your down payment will be 25 percent of your charges. If you currently receive a 100% [facility] discount , these new guidelines do not apply to you. We accept milligan, check, Visa and MasterCard. If you are a self-pay patient and would like to discuss discounted services or Medicaid, please contact [facility] at [phone]. Remember: at the time of your appointment, you must present a photo ID as well as your insurance card or the required down payment, or your appointment will be rescheduled for another day. If you have commercial insurance and [facility] is not on your list of providers, [...] Education Materials : Health Clinics in the [facility] Website: http://www.healthy[place].org/rx_resource_center_resources.html#ne [facility] Health Care Access in [place]: http://www.healthcareaccess.org [address] [place] [address] Provides comprehensive health care services and medication assistance to [facility] residents who have a limited income and no health insurance. [facility]: http://www.mcl[facility] port huron hospitalNext Glass/medministryphp [address] [facility], [address] [place] [address] Provides medical care for children and adults including preventive, chronic and acute health care. [facility]: http://www.[place].[facility]/ healthpa.htm [address] [address] Provides medication assistance for [facility] patients who are [facility] residents, have incomes of 200 percent of the poverty level and below and have no insurance. [facility] [address] [place] [address] . Provides primary health care services to the uninsured, registered patients of [facility] with incomes of 150 percent of the poverty level and below. Prescription drug assistance is available to clinic patients. [facility]: http://www.[facility]/seton medical centeru/trade.htm [address] [place] [address] Proof of income & meet Federal poverty level; only uninsured individuals. No walk-ins unless homeless. [address] [id number] Provides primary health care. Individuals and families with incomes below 200 percent of the poverty level are eligible for the sliding fee scale. [employer] [facility] ([place] and [place] locations): http://www.Cibiem.org/ [place] locations: [employer] Juan [address] [place] [address] [phone] [facility] [address], [address] [place] [address] [facility] [address], [address] [place] [address] Charge based on income and family size. Provides: adult medicine, pediatrics, obstetrics/gynecology, mental health, healthcare for homeless, laboratory, x-ray , dental services. [facility] [address], [address] [place] [address] Provides primary healthcare and health counseling services to children under age 20. [facility] [address] [place] [address] Provides immunizations, blood pressure, and examinations for sexually transmitted diseases. [place] Website: http://www.[facility].or.gov/LPHA/LPHAs.html [facility] [address] [place] [address] [phone] Provides primary health care to [facility] and [facility]'s community. Administers well-baby services, AIDS / HIV testing, family planning counseling, diabetes screening/education / treatment, WIC program, immunizations , nutrition education, migrant health services, medical clinic, dental clinic. [address] [phone] [facility] Clinic: [email or web address]/ [address] [phone] Must be [facility] resident with no health insurance. Provides immunizations , well-baby clinics, and sexually transmitted disease clinic. Adults with chronic diseases are seen on Tuesdays from 6-9pm by appointment only. [facility]: [email or web address] [place]: [phone] [address] [place] [address] [place]: [phone] [address] Appointments scheduled on a next-day scheduling basis. Bring proof of income and current residency information. Provides general medicine, testing/screening , community health, mental health services, HIV primary care and support, dental services. [facility] Clinic on [address]: http://www.[email or web address]/ [address] [place] [address] Interpreters: Nepali, [place] Citizen, Bosnian, Amharic, Thai, Kurdish, Iranian, Japanese, and Kenyan Provides the following services based on income and family size: pediatric, womens health/obstetrics, adult/geriatric medicine, dentistry, behavioral health/psychiatric services, gambling addiction counseling , substance abuse treatment and counseling. [facility]: http://www.[facility].org/ [place] locations: [facility] [address] [place] [address] [facility] [address] [place] [address] [facility] [address] [address] Charge based on income and family size. Provides: adult medicine, pediatrics, obstetrics/gynecology, mental health, healthcare for homeless, laboratory, x-ray , dental services. [facility]: [facility] Department: http://www.[facility].or.gov/profiles/CountyInfo/ CpiClay.[place] [address] Provides primary, preventative, and womens health care services. [facility]: http://www.[email or web address] centerhealthdept.com [facility] [address] [place] [address] Primary care, funded by [facility] and the [facility] care tax bob. Provides primary health care to citizens who are on Medicaid or MC+ or have no health insurance. [facility]: [facility] [address], [place] [id number] Provides health education and health screenings. Diarrhea [...] well after each diarrhea episode. Only take dzet-mev-nqhasph or prescription medicines as directed by your [...] Released: 09/25/2003 Document Revised: 10/26/2015 Document Reviewed: [employer] Patient Information 2016 navabi. Prescription leaflets: Prescriptions : Prescriptions: loperamide (loperamide 2 mg oral capsule) 2 mg (1 cap) By Mouth Every 4 Hours, 10 cap, 0 Refills, printed prescription Comment: Your Upcoming Appointments/Genesis proximas citas Please bring all home medications to every visit with us at [facility]. Your safety and education around medications [...] Completed Stat, 06/03/16 21:54:00, Blood, 74.2 kg Ios[place] Completed Stat, ST, 06/03/16 21:54:00, Blood, Print Label POC UA Completed Urine, Collected Y/N, 06/03/16 21:53:00, Routine, RT, 06/03/16 21:53:00 Rapid Rotavirus Completed STAT, 06/03/16 21:54:00, Feces, Print Label Shiga Toxin Ordered Stat, 06/03/16 21:54:00, Stool, Nurse Collect, 06/03/16 21:56:00, 06/03/16 21:54 :00 PRE WAVE [employer]SEM[employer]ER Completed 06/03/16 21:59:00, Stat, ST, Other, 1 mL No Draw/*[id number]*/, Collected Y/N, Done, 06/03/16 22:30:00, [facility] Log-in, GUYTONLK Radiology Orders No radiology orders [...] RESULTS! Take Charge of Your Health with [facility] Sign up today for [facility] for access to your health records 11/05. [facility]Pres[facility] CenterStem[facility] The[facility] allows you to: Request an appointment Check your lab results Communicate with your providers and care team See provider notes from your visit View immunization records View current medication Sign up Today! Ask your healthcare provider or a [facility] associate for help, or email [email or web address]/[facility] JORDON Saldaña JAMARI RAYNEAL, have received the attached patient education materials/instructions and have verbalized understanding/Yo recibi educacion, materiales instrucciones de paciente y se me a explicado verbalmente para mi propia comprension: Patient/Guardian Signature Date Firma de paciente/guardian [place] Witness Signature Date Firma de Testkody Quigley </td></tr></tbody></table> [facility] Clinical Document <table cellspacing="1" cellpadding="0" width="95%"><colgroup><col [...] abuse. Patient is a college student at [employer]. 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 He stopped working there about 2 weeks ago. He does not know of any specific sick contacts recently. He denies any unusual bites, stings, or rashes while working at [employer]. Review of Systems: All other systems reviewed and are negative Physical Exam: Vitals: Temperature 99.4 heart rate 78 respiratory rate 18 blood pressure 129/ 82 and oxygen saturation 100% on room air Gen.: This is a well-developed athletic appearing -Slovak male who is not in acute distress [...] not have a regular medical doctor, the [facility] Resource Sheet will be provided [...] with a voice recognition dictation system.</ td></tr></tbody></table> [facility] Vital Signs Vital Sign Value Date Comments Source Total Pain Calculation 0 [facility] Heart Rate 72 bpm 12/07/2013 [facility] Respiratory Rate 16 BR/min [facility] Temperature Celsius 36.3 Rachel 12/07/2013 [facility] Systolic Blood Pressure Cuff Monitored 132 mm[Hg] 12/07/2013 [facility] Diastolic Blood Pressure Cuff Monitored 82 mm[Hg] 12/07/2013 [facility] Temperature Route Oral </br>(12/06/2013 20:32:00) <sup> </sup> 12/07/2013 [facility] NBP Activity Calm </br>(12/06/2013 20:32:00) <sup> </sup> 12/07/2013 [facility] NBP Cuff Sizes Adult </br>(12/06/2013 20:32:00) <sup> </sup> 12/07/2013 [facility] NBP Extremity Arm, left </br>(12/06/2013 20:32:00) <sup> </sup> 12/07/2013 [facility] NBP Position Sitting </br>(12/06/2013 20:32:00) <sup> </sup> 12/07/2013 [facility] Total Pain Calculation 2 [facility] SpO2 100 % 12/07/2013 [facility] Respiratory Rate 16 BR/min [facility] Heart Rate 60 bpm 12/07/2013 [facility] Respiratory Rate 16 BR/min [facility] Fraction of Inspired Oxygen 21 % 12/07/2013 [facility] SpO2 95 % 12/07/2013 [facility] Heart Rate 76 bpm 12/07/2013 [facility] Total Pain Calculation 10 [facility] Systolic BP 126 mmHg 2015 [facility] Diastolic BP 74 mmHg 2015 [facility] Oxygen Saturation 98 % 2015 [facility] Oxygen Therapy Room air </br>(10/23/15 3:17 AM) 10/23/2015 [facility] Resp. Rate 16 BRMIN 2015 [facility] Temperature Route Oral </br>(10/23/15 3:17 AM) 10/23/2015 [facility] Temperature Oral 97.7 [degF] 10/23/2015 [facility] Heart Rate 75 bpm 10/23/2015 [facility] Temperature Oral 99.2 [degF] 06/04/2016 [facility] Resp. Rate 19 BRMIN 2015 [facility] Heart Rate 71 bpm 06/04/2016 [facility] Heart Rate 78 bpm 06/04/2016 [facility] Systolic BP 129 mmHg 2015 [facility] Diastolic BP 82 mmHg 2015 [facility] Temperature Oral 99.4 [degF] 06/04/2016 [facility] Temperature Route Oral </br>(06/03/16 9:22 PM) 06/04/2016 [facility] Oxygen Saturation 100 % 06/04 [facility] Oxygen Therapy Room air </br>(06/03/16 9:22 PM) 06/04/2016 [facility] Resp. Rate 18 BRMIN 2015 [facility] Encounters Location Location Details Encounter Type Encounter Number Reason For Visit Attending Provider ADM Date DC Date Status Source [facility] RCR [id number] tibia fracture Mega Apple 10/18/2013 02/15/2014 [facility] CLI [id number] f/u tibial tubercle fx Nely Aundrea 06/21/2013 06/21/2013 [facility] ER [id number] Injury - Ankle(s) Brooklynn Swanson 12/06/2013 12/06/2013 [facility] CLI [id number] 4-5 wk fx fu - knee Nely Aundrea 09/06/2013 09/06/2013 [facility] CLI [id number] 9-10 wk fx fu - knee Nely Aundrea [facility] CLI [id number] 4-5 wk fx fu - tib Nely Aundrea 08/02/2013 08/02/2013 [facility] CLI [id number] f/u TIBIAL TUBERCLE FX Nely Aundrea 12/14/2013 12/14/2013 [facility] CLI [id number] FU FX Nely Aundrea 09/27/20132012 [facility] CLI [id number] f/u on brace; weight bearing Nely Aundrea 07/05/2013 07/05/2013 [facility] ER [id number] Fever [facility] [place] 10/30/2012 10/30/2012 [facility] [id number] Tian Galvan 10/23/2015 10/24/2015 [facility] [id number] Tian Galvan 06/04/2016 06/04/2016 [facility] Procedures Procedure Code Date Perfomer Comments Source No data available for this section [facility]
[2016-10-31 18:10] VITALS: BP 137/63
== END 2016-10-31 18:13 | disposition home or self-care (01) ==
LOC: EDUNIT# 17:57 → ER 17:59
DX: S91.312D Laceration without foreign body, left foot, subsequent encounter (principal)

== ENCOUNTER 2017-11-12 17:59 | Emergency (ER) | payer BC, OTHER ==
[~2017-11-12] VITALS: Ht 190.5 cm; Wt 72.6 kg
[2017-11-12] MEDS ORDERED: VENL37.52 PO (18:09)
--- NOTE | 2017-11-12 18:10 | ED Cough/URI ---
General Chief Complaint: Respiratory Problems Stated Complaint: SOB Source: patient Exam Limitations: no limitations History of Present Illness Date Seen by Provider: Nov 12, 2017 Time Seen by Provider: 18:08 Initial Comments To ER with shortness of breath 1 hour. Denies chest pain. He has had influenza- like symptoms for the past 3 weeks but was never evaluated for this. He denies any worsening cough today. He's had some rhinorrhea but no different today. He does feel anxious at this time. Timing/Duration: constant Severity/Quality: moderate Associated Symptoms: shortness of breath Allergies and Home Medications Allergies Coded Allergies: No Known Drug Allergies (Unverified , 10/23/16) Home Medications Venlafaxine HCl 37.5 Mg Cap.er.24h, 37.5 MG PO DAILY, (Reported) Constitutional: see HPI, No chills EENTM: other (rhinorrhea) Respiratory: see HPI, short of breath Genitourinary: no symptoms reported Musculoskeletal: no symptoms reported Skin: no symptoms reported Psychiatric/Neurological: No Symptoms Reported Past Rmrnbkx-Jdkxvn-Iadahz Hx Patient Social History Recent Hopitalizations: No Immunizations Up To Date Tetanus Booster (TDap): Less than 5yrs PED Vaccines UTD: Yes Seasonal Allergies Seasonal Allergies: No Surgeries Surgeries: Orthopedic Reproductive System Hx Reproductive Disorders: No Blood Transfusions Adverse Reaction to a Blood Tr: No Physical Exam Vital Signs Vital Sign - Last 12Hours 11/12/17 18:05 Temp 98.4 Pulse 95 Resp 22 B/P (MAP) 145/107 (120) Pulse Ox 100 O2 Delivery Room Air Capillary Refill : General Appearance: WD/WN, no apparent distress, other (tall, thin) Eyes: Bilateral Eye Normal Inspection, Bilateral Eye PERRL, Bilateral Eye EOMI HEENT: PERRL/EOMI, normal ENT inspection, TMs normal Neck: non-tender, full range of motion Respiratory: normal breath sounds, no respiratory distress, no accessory muscle use, other (shallow breathing, good air movement when he does take a deep breath, no wheezing) Cardiovascular: regular rate, rhythm, no murmur Gastrointestinal: normal bowel sounds, non tender Neurologic/Psychiatric: alert, normal mood/affect, oriented x 3 Skin: normal color, warm/dry Laceration Repair : Suture Size: 5-0 Progress/Results/Core Measures Suspected Sepsis SIRS Temperature: Pulse: Respiratory Rate: Laboratory Tests 11/12/17 18:20: White Blood Count 7.3 Blood Pressure / Mean: Laboratory Tests 11/12/17 18:20: Creatinine 1.22, Platelet Count 396 Results/Orders Lab Results Laboratory Tests Test 11/12/17 18:20 Range/Units White Blood Count 7.3 4.3-11.0 10^3/uL Red Blood Count 4.63 4.35-5.85 10^6/uL Hemoglobin 14.0 13.3-17.7 G/DL Hematocrit 35 L 40-54 % Mean Corpuscular Volume 77 L 80-99 FL Mean Corpuscular Hemoglobin 30 25-34 PG Mean Corpuscular Hemoglobin Concent 40 H 32-36 G/DL Red Cell Distribution Width 14.0 10.0-14.5 % Platelet Count 396 130-400 10^3/uL Mean Platelet Volume 8.5 7.4-10.4 FL Neutrophils (%) (Auto) 70 42-75 % Lymphocytes (%) (Auto) 21 12-44 % Monocytes (%) (Auto) 8 0-12 % Eosinophils (%) (Auto) 0 0-10 % Basophils (%) (Auto) 0 0-10 % Neutrophils # (Auto) 5.1 1.8-7.8 X 10^3 Lymphocytes # (Auto) 1.5 1.0-4.0 X 10^3 Monocytes # (Auto) 0.6 0.0-1.0 X 10^3 Eosinophils # (Auto) 0.0 0.0-0.3 10^3/uL Basophils # (Auto) 0.0 0.0-0.1 10^3/uL D-Dimer 0.99 H 0.00-0.49 UG/ML Sodium Level 141 135-145 MMOL/L Potassium Level 3.4 L 3.6-5.0 MMOL/L Chloride Level 108 H 98-107 MMOL/L Carbon Dioxide Level 23 21-32 MMOL/L Anion Gap 10 5-14 MMOL/L Blood Urea Nitrogen 12 7-18 MG/DL Creatinine 1.22 0.60-1.30 MG/DL Estimat Glomerular Filtration Rate > 60 BUN/Creatinine Ratio 10 Glucose Level 121 H 70-105 MG/DL Calcium Level 9.5 8.5-10.1 MG/DL My Orders Orders - CHARLENE CONTI [employer]OR POOL CLERK Cbc With Automated Diff (11/12/17 18:07) Basic Metabolic Panel (11/12/17 18:07) Fibrin Degradation Products (11/12/17 18:07) Ekg Tracing (11/12/17 18:07) Chest Pa/Lat (2 View) (11/12/17 18:07) Albuterol/Ipra Inhalation Soln (Duoneb I (11/12/17 18:15) Alprazolam Tablet (Xanax Tablet) (11/12/17 18:15) Svn Sm Volume Nebulizer Rt-Rfs (11/12/17 18:07) Ct Angio Chest W (11/12/17 18:56) Iohexol Injection (Omnipaque 350 Mg/Ml 1 (11/12/17 19:15) Sodium Chloride Flush (Catheter Flush Sy (11/12/17 19:15) Ns (Ivpb) (Sodium Chloride 0.9% Ivpb Bag (11/12/17 19:15) Pharmacy Communication (Pharmacy Communi (11/12/17 19:03) Medications Given in ED Current Medications Medications Dose Ordered Sig/Mary Anne Route Start Time Stop Time Status Last Admin Dose Admin Albuterol/ Ipratropium 3 ml ONCE ONCE INH 11/12/17 18:15 11/12/17 18:16 DC 11/12/17 18:27 3 ML Alprazolam 0.25 mg ONCE ONCE PO 11/12/17 18:15 11/12/17 18:16 DC 11/12/17 18:24 0.25 MG Iohexol 100 ml ONCE ONCE IV 11/12/17 19:15 11/12/17 19:16 DC 11/12/17 19:20 100 ML Sodium Chloride 10 ml NEEDED PRN IV 11/12/17 19:15 11/12/17 19:20 10 ML Sodium Chloride 100 ml ONCE ONCE IV 11/12/17 19:15 11/12/17 19:16 DC 11/12/17 19:20 80 ML Vital Signs/I&O Vital Sign - Last 12Hours 11/12/17 11/12/17 18:05 18:27 Temp 98.4 Pulse 95 Resp 22 B/P (MAP) 145/107 (120) Pulse Ox 100 100 O2 Delivery Room Air Room Air Capillary Refill : Departure Impression Impression: Primary Impression: Pleuritic chest pain Disposition: 01 HOME, SELF-CARE Condition: Stable Departure-Patient Inst. Referrals: NO,LOCAL PHYSICIAN (PCP/Family) Primary Care Physician CHARLENE CONTI APRN Nov 12, 2017 18:10
[2017-11-12] MEDS ORDERED: ALPRAZolam 0.25 MG (XANAX) TAB PO ONE (18:15)
[2017-11-12] MEDS ORDERED: RT-ALBUTEROL/IPRATROPIUM 3 ML (DUONEB) VIAL INH ONE (18:15)
[2017-11-12 18:32] LABS: BASOPHILS % (AUTO) 0 % (0-10); EOSINOPHILS % (AUTO) 0 % (0-10); HEMATOCRIT 35 % (40-54); LYMPHOCYTES # (AUTO) 1.5 X 10^3 (1.0-4.0); LYMPHOCYTES % (AUTO) 21 % (12-44); MEAN CORPUSCULAR HEMOGLOBIN 30 PG (25-34); MEAN CORPUSCULAR HGB CONC 40 G/DL (32-36); MEAN CORPUSCULAR VOLUME 77 FL (80-99); MEAN PLATELET VOLUME 8.5 FL (7.4-10.4); MONOCYTES # (AUTO) 0.6 X 10^3 (0.0-1.0); MONOCYTES % (AUTO) 8 % (0-12); NEUTROPHILS # (AUTO) 5.1 X 10^3 (1.8-7.8); NEUTROPHILS % (AUTO) 70 % (42-75); PLATELET COUNT 396 10^3/uL (130-400); RED BLOOD COUNT 4.63 10^6/uL (4.35-5.85); WHITE BLOOD COUNT 7.3 10^3/uL (4.3-11.0)
[2017-11-12 18:51] LABS: BUN/CREATININE RATIO 10; CALCIUM 9.5 MG/DL (8.5-10.1); CARBON DIOXIDE 23 MMOL/L (21-32); CHLORIDE 108 MMOL/L (98-107); CREATININE SERUM 1.22 MG/DL (0.60-1.30); GFR ESTIMATED > 60; GLUCOSE 121 MG/DL (70-105); POTASSIUM 3.4 MMOL/L (3.6-5.0); SODIUM 141 MMOL/L (135-145)
[2017-11-12] MEDS ORDERED: NS 100 ML (IVPB) BAG IV ONE (19:15)
[2017-11-12] MEDS ORDERED: CATHETER FLUSH 10 ML SYR IV PRN (19:15)
[2017-11-12] MEDS ORDERED: IOHEXOL 350 MG/ML 100 ML (OMNIPAQUE 350) VIAL IV ONE (19:15)
--- NOTE | 2017-11-12 19:20 | Diagnostic Imaging Report ---
CHEST PA/LAT (2 VIEW) Indication: Shortness of breath. Comparison: None available. Findings: No focal pneumonic consolidation, pleural effusion or pneumothorax. Normal heart size and pulmonary vasculature. Impression: No acute cardiopulmonary process. Dictated by: Dictated on workstation # [id number]
--- NOTE | 2017-11-12 19:35 | Diagnostic Imaging Report ---
PROCEDURE: CT angiography of the chest with contrast. TECHNIQUE: Multiple contiguous axial images were obtained through the chest after uneventful bolus administration of intravenous contrast. Reconstructed CTA MIP acquisitions were also performed. INDICATION: Chest pain. COMPARISON: None FINDINGS: There is no CT evidence of acute pulmonary embolus to the first subsegmental division of the pulmonary arteries. Thoracic aorta is normal in course and caliber. There is no evidence of dissection, aneurysm, nor focal stenosis. Heart size is within normal limits. There is no large pericardial effusion. No pathologically enlarged or morphologically abnormal adenopathy is seen within the mediastinum, jak, nor axilla. There is small amount of soft tissue density within the anterosuperior mediastinum. This, however, is likely on the basis of residual thymic tissue. Lung farrar are clear. There is no focal consolidation, pleural effusion, nor pneumothorax. No pulmonary nodules or masses are identified. Bony structures show no acute abnormalities. Included portions of the upper abdomen are unremarkable as well. IMPRESSION: 1. Unremarkable CTA of the chest. No acute cardiopulmonary process is identified. Dictated by: Dictated on workstation # [id number]
[2017-11-12] MEDS ORDERED: KETOROLAC 30 MG/ML VIAL IVP ONE (19:45)
[2017-11-12] MEDS ORDERED: RX-ALBUTEROL INHALER (PROAIR) 8 GM IH STA (20:05)
[2017-11-12 20:15] VITALS: BP 138/89
== END 2017-11-12 20:15 | disposition home or self-care (01) ==
LOC: EDUNIT# 17:59 → ER 18:01
DX: R07.81 Pleurodynia (principal)
CPT/HCPCS: 36415; 71046; 71275; 80048; 85025; 85379; 93005; 94640